=== PATIENT | female | born 1995 | race Caucasian/White ===

== ENCOUNTER 2022-02-09 08:27 | Outpatient (CLI) | payer BC, OTHER | END 2022-02-09 08:28 | disposition home or self-care (01) | LOC: CSHLAB 08:27 | PROVIDERS: ATTEND Obstetrics & Gynecology | DX: Z20.822 Contact with and (suspected) exposure to COVID-19 (principal) | CPT/HCPCS: 87811 ==

== ENCOUNTER 2022-02-09 23:48 | Inpatient (IN) | payer BC, OTHER ==
[2022-02-10] MEDS ORDERED: Promethazine HCl 25 MG/ML VIAL IM PRN ×3 (00:29→09:49)
[2022-02-10] MEDS ORDERED: Misoprostol 200 MCG TAB PR PRN (00:29)
[2022-02-10] MEDS ORDERED: Carboprost 250 MCG/ML AMP IM PRN (00:29)
[2022-02-10] MEDS ORDERED: Lidocaine 1% (PF) 30 ML VIAL SC PRN (00:29)
[2022-02-10] MEDS ORDERED: Methylergonovine 0.2 MG/ML VIAL IM PRN ×2 (00:29→09:49)
[2022-02-10] MEDS ORDERED: Butorphanol Tartrate 1 MG/ML VIAL SLOW IVP PRN (00:29)
[2022-02-10] MEDS ORDERED: hydrALAZINE 20 MG/ML VIAL SLOW IVP PRN ×2 (00:29→09:49)
[2022-02-10] MEDS ORDERED: Diphenoxylate HCl/Atropine Tablet PO PRN (00:29)
[2022-02-10] MEDS ORDERED: Ondansetron PF 4 MG/2 ML Vial IVP PRN ×3 (00:29→09:49)
[2022-02-10] MEDS ORDERED: NS w/ Oxytocin 30 units 500 ML IV SCH ×3 (00:30→09:49)
[2022-02-10 02:05] LABS: Hemoglobin 11.9 g/dL (12.0-15.5); Mean Corpuscular HGB CONC 34.3 g/dL (32.0-36.0); Mean Corpuscular Hemoglobin 28.4 pg (27.0-33.0); Mean Corpuscular Volume 82.8 fl (81.6-98.3); Mean Platelet Volume 13.3 fl (7.4-10.4); Platelet Count 157 10x3/uL (150-450); RBC Distribution Width 13.1 % (11.5-14.5); Red Blood Cell (RBC) Count 4.19 10x6/uL (3.90-5.03)
[2022-02-10] MEDS ORDERED: Fentanyl 2 mcg/Bup 0.1% Cadd 100 ML ONE (02:22)
[2022-02-10 02:23] VITALS: BMI 37.3
[2022-02-10 02:32] LABS: Hep B Surf Ag Non-Reactive S/CO (NonReactive); Syphilis Antibody Nonreactive (Nonreactive); Syphilis Antibody Index 0.06 S/CO (<1.00 Non-Reactive)
[2022-02-10 02:35] LABS: HBSAg Index 0.15 S/CO (0-0.99)
[2022-02-10] MEDS: Lactated Ringer's 1,000 ML IV SCH ×2 (03:06→15:46)
[2022-02-10] MEDS ORDERED: Moisturizing Cream (Eucerin) 113 GM JAR TOP PRN (03:14)
[2022-02-10] MEDS ORDERED: ePHEDrine Sulfate 50 MG/10 ML VIAL SLOW IVP PRN (03:14)
[2022-02-10] MEDS ORDERED: Naloxone HCl 0.4 mg/ml Vial IVP PRN ×2 (03:14)
[2022-02-10] MEDS ORDERED: Acetaminophen 325 MG TAB PO PRN (03:14)
[2022-02-10] MEDS ORDERED: diphenhydrAMINE 50 MG/ML VIAL IVP PRN (03:14)
[2022-02-10] MEDS ORDERED: Lactated Ringer's 500 ML IV PRN (03:14)
[2022-02-10] MEDS ORDERED: Fentanyl 2 mcg/Bupivacaine 0.1% Cassette 100 ML EPIDURAL SCH (03:15)
[2022-02-10] MEDS ORDERED: Communication Order-Pharmacy FS SCH (03:15)
[2022-02-10] MEDS ORDERED: Bupivacaine/Epinephrine 0.25% 30 ML VIAL ONE (08:00)
[2022-02-10] MEDS ORDERED: diphenhydrAMINE 25 MG CAP PO PRN (09:49)
[2022-02-10] MEDS ORDERED: Preparation H Ointment 28 GM TUBE PR PRN (09:49)
[2022-02-10] MEDS ORDERED: HYDROcodone/Acetaminophen 5/325 mg Tablet PO PRN (09:49)
[2022-02-10] MEDS ORDERED: Zolpidem Tartrate 5 MG TAB PO PRN (09:49)
[2022-02-10] MEDS ORDERED: Boostrix 0.5 ML (Tdap) VIAL IM ONE (09:49)
[2022-02-10] MEDS ORDERED: Misoprostol 200 MCG TAB VAG PRN (09:49)
[2022-02-10] MEDS ORDERED: Measles/Mumps/Rubella 10 MCG/0.5 ML VIAL SC ONE (09:49)
[2022-02-10] MEDS ORDERED: Varicella virus, LIVE 0.5 ML VIAL SC ONE (09:49)
[2022-02-10] MEDS ORDERED: Milk Of Magnesia 30 ML UDCUP PO PRN (09:49)
[2022-02-10] MEDS ORDERED: Lanolin Ointment 7 GM TUBE TOP PRN (09:49)
[2022-02-10] MEDS ORDERED: Benzocaine-Menthol 82.5 ML CAN TOP PRN (09:49)
[2022-02-10] MEDS ORDERED: Bisacodyl 10 MG SUPP PR PRN (09:49)
[2022-02-10] MEDS: Docusate 100 MG CAP PO SCH ×2 (11:38→21:56)
[2022-02-10] MEDS: Ferrous Sulfate 325 MG TAB PO SCH ×2 (11:38→16:44)
[2022-02-10] MEDS: Prenatal Vitamin 1 TAB PO SCH (11:39)
[2022-02-10] MEDS: Ibuprofen 800 MG TAB PO SCH ×2 (13:26→21:56)
[2022-02-11 04:29] LABS: Hemoglobin 10.4 g/dL (12.0-15.5); Mean Corpuscular HGB CONC 33.1 g/dL (32.0-36.0); Mean Corpuscular Hemoglobin 27.8 pg (27.0-33.0); Mean Platelet Volume 13.3 fl (7.4-10.4); Platelet Count 119 10x3/uL (150-450); RBC Distribution Width 13.2 % (11.5-14.5); Red Blood Cell (RBC) Count 3.74 10x6/uL (3.90-5.03); White Blood Cell (WBC) Count 7.1 10x3/uL (3.5-10.5)
[2022-02-11] MEDS: Ibuprofen 800 MG TAB PO SCH ×3 (06:12→21:16)
[2022-02-11] MEDS: Ferrous Sulfate 325 MG TAB PO SCH ×2 (09:17→17:20)
[2022-02-11] MEDS: Docusate 100 MG CAP PO SCH ×2 (09:17→21:16)
[2022-02-11] MEDS: Prenatal Vitamin 1 TAB PO SCH (09:17)
[2022-02-12 00:58] VITALS: TEMP 98.2
[2022-02-12] MEDS: Ibuprofen 800 MG TAB PO SCH (05:00)
[2022-02-12 07:34] VITALS: BP 119/58
[2022-02-12] MEDS: Ferrous Sulfate 325 MG TAB PO SCH (07:35)
[2022-02-12] MEDS: Prenatal Vitamin 1 TAB PO SCH (08:56)
[2022-02-12] MEDS: Docusate 100 MG CAP PO SCH (08:56)
== END 2022-02-12 13:20 | disposition home or self-care (01) | DRG 807 ==
LOC: CSHLD/OP 23:48 → CSHLD 02-10 02:09 → CSHPP 02-10 10:45
PROVIDERS: ADMIT Obstetrics & Gynecology; ATTEND Obstetrics & Gynecology
PROC: 10E0XZZ Delivery of Products of Conception, External Approach (ICD-10-PCS; principal; 2022-02-10)
DX: O70.1 Second degree perineal laceration during delivery (principal); Z37.0 Single live birth; Z3A.38 38 weeks gestation of pregnancy; Z20.822 Contact with and (suspected) exposure to COVID-19
CPT/HCPCS: 51702; 85027; 86780; 86850; 86900; 86901; 87340; 87811; 99285; J7120